=== PATIENT | female | born 1995 | race Caucasian/White ===

== ENCOUNTER 2023-02-15 15:38 | Outpatient (CLI) | payer OTHER, SELFPAY ==
--- NOTE | ~2023-02-15 | US_ITS ---
EXAMINATION: US OB follow up DATE: 02/15/2023 16:20 INDICATION: Amenorrhea TECHNIQUE: Real-time ultrasound of the pelvis was performed. The interpreting radiologist was not pre sent for the study. COMPARISON: None. FINDINGS: There is a single living fetus in vertex presentation. The crown rump length measures 10.0 cm which c orrelates with an estimated gestational age of 15 weeks and 6 days. The placenta is anterior and not low-lying with caudal margin >5 cm from the internal cervical os. heart rate is 137 beats per m inute (bpm). The amniotic fluid volume is subjectively normal. IMPRESSION: 1. Single living fetus in vertex presentation with heart rate of 137 bpm. 2. Gestational age by ultrasound of 15 weeks 6 day(s) +/- 1 week(s) 3 day(s) with ultrasound estimate d date of delivery (JEREMY) of 08/03/2023. Reviewed, dictated and finalized at location A. IMPRESSION: 1. Single living fetus in vertex presentation with heart rate of 137 bpm. 2. Gestational age by ultrasound of 15 weeks 6 day(s) +/- 1 week(s) 3 day(s) wi th ultrasound estimated date of delivery (JEREMY) of 08/03/2023.
== END 2023-02-15 15:39 | disposition home or self-care (01) ==
LOC: ANHIMG 15:44
PROVIDERS: Visit Provider Registered Nurse
DX: Z34.92 Encounter for supervision of normal pregnancy, unspecified, second trimester (principal); Z3A.15 15 weeks gestation of pregnancy
CPT/HCPCS: 76816

== ENCOUNTER 2023-06-30 15:42 | Outpatient (RCR) | payer OTHER, SELFPAY ==
[2023-06-30 16:23] VITALS: BP 129/87
== END 2023-09-28 23:59 | disposition home or self-care (01) ==
LOC: ANHOBOP 15:42
PROVIDERS: Visit Provider Obstetrics & Gynecology
DX: O36.8130 Decreased fetal movements, third trimester, not applicable or unspecified (principal); Z3A.35 35 weeks gestation of pregnancy
CPT/HCPCS: 59025

== ENCOUNTER 2023-07-27 11:33 | Outpatient (CLI) | payer OTHER, SELFPAY ==
[2023-07-27 12:11] LABS: Hematocrit 36.4 % (37.0-47.0); Hemoglobin 10.9 g/dL (12.0-15.0); Mean Corpuscular HGB Conc 29.9 g/dl (32-36); Mean Corpuscular Hemoglobin 23.4 pg (26-34); Mean Corpuscular Volume 78.1 fl (80-100); Mean Platelet Volume 9.8 fl (7.4-10.4); Platelet Count Result 262 k/mm3 (150-375); Red Blood Count 4.66 M/mm3 (4.2-5.4); Red Cell Distribution Width 18.5 % (11.5-14.5); White Blood Count 9.2 K/mm3 (4.5-10.0)
[2023-07-27 13:01] LABS: Rapid Plasma Reagin Non-Reactive (NonReactive)
[2023-07-27 13:02] LABS: HIV 1/2 Ab P24 Ag Result Negative (Negative)
== END 2023-07-27 11:34 | disposition home or self-care (01) ==
PROVIDERS: Visit Provider Obstetrics & Gynecology
DX: O26.93 Pregnancy related conditions, unspecified, third trimester (principal); O99.019 Anemia complicating pregnancy, unspecified trimester; Z3A.00 Weeks of gestation of pregnancy not specified
CPT/HCPCS: 36415; 85027; 86592; 86703; 86850; 86900; 86901; G0432

== ENCOUNTER 2023-07-29 05:14 | Inpatient (IN) | payer OTHER, SELFPAY ==
--- NOTE | 2023-07-28 13:56 | PM.IMHP ---
H&P: HPI History of Present Illness Date/Time: 07/28/23 13:56 Chief Complaint: Elective repeat section Narrative: She is a 27 y/0 at 39 weeks by LMP consistent with second trimester ultrasound presents for elective repeat section. She has opted for repeat . PNC significant for h/o anxiety/depression which has been stable off medications. H/o HSV, valtrex for suppression. Review of Systems Review of Systems: All systems reviewed & are unremarkable except as noted in HPI and below Constitutional: Constitutional: Reports no additional constitutional complaints and Denies headache(s) Eyes: Eyes: Denies spots in vision ENT: Reports system reviewed and no additional complaints, except as documented and Denies headache(s) Cardiovascular: Cardiovascular: Denies chest pain and Denies dyspnea Respiratory: Respiratory: Denies dyspnea Gastrointestinal: Gastrointestinal: Reports no additional gastrointestinal complaints Genitourinary: Genitourinary: Reports amenorrhea Musculoskeletal: Musculoskeletal: Reports no additional musculoskeletal complaints Integumentary/Breasts: Skin/Breast: Denies breast mass and Denies rash Neurologic: Denies headache(s) Psychiatric: Psychiatric: Reports no additional psychiatric complaints FORMERLY [facility] Past Medical History Medical History Anxiety Cholecystectomy planned Headache HSV-1 (herpes simplex virus 1) infection Surgical History Surgical History (Updated 07/28/23 @ 15:40 by Castro Sotelo MD) Delivery by section H/O dilation and curettage Family History Family History Sibling History of blood clots Social History Social History Smoking status: Never smoker Alcohol intake: never Substance use: never Substance use type: marijuana Lack of Transportation: No Lack of Food: Never True Current Housing: I Have Housing Concerned About Future Housing: No Difficulty Paying Gas/Electric Bills: No Difficulty Paying for Meds: No Currently Unemployed: YES Difficulty w/ Childcare or Family Care: No Living arrangements: with family Gender identity (if verbalized by the patient): Female Spiritual care concerns: No Meds Home Medications and Allergies Home Medications Medication Instructions Recorded Confirmed Type valacyclovir 500 mg tablet 500 mg PO DAILY #90 tabs 01/10/23 07/27/23 Rx metoclopramide HCl 5 mg tablet 5 mg PO .COMPLEX #90 tabs 03/15/23 07/27/23 Rx vits 75-iron 28 mg-folic pkg PO 03/15/23 07/27/23 History acid 800 mcg-omega3 440 mg oral pack (One Daily ) famotidine 20 mg tablet See Rx Instructions .Route 03/16/23 07/27/23 Rx .COMPLEX #180 tabs ferrous sulfate 325 mg (65 mg 325 mg PO BID #60 tabs 07/04/23 07/27/23 Rx iron) tablet Allergies Allergy/AdvReac Type Severity Reaction Status Date / Time adhesive tape Allergy Rash Verified 07/27/23 10:04 grape flavor Allergy Vomiting Verified 07/27/23 10:04 cigarette smoke AdvReac Nausea Verified 07/27/23 10:04 Exam Const: General: no acute distress Eyes: General: appearance normal, both eyes and all related structures Resp: Effort & Inspection: normal respiratory effort Cardio: Rate: regular rate GI: Other: Gravid no fundal tenderness no right upper quadrant pain Skin: General skin exam: no rashes or lesions noted Neuro: Cognition (Neuro): normal cognition Extrem: General: normal to inspection Psych: Mental Status: mental status grossly normal Assessment and Plan Assessment and plan (1) Delivery by section: Status: Acute Assessment and Plan: Admit. Will perform repeat section. She has been counseled regarding risk benefits and will proceed with repeat section. Ester
[2023-07-29] VITALS (49 sets, daily range): BP systolic 106–151; BP diastolic 55–102; PULSE 46–122; RESP 14–20; TEMP 36.1–36.7; O2SAT 95–100; BMI 35.2
--- NOTE | 2023-07-29 05:35 | LDADM ---
This patient, Mal Gilliam, was admitted to Labor/Delivery/Recovery 120 on 07/29/23 at 05:14. Plans for labor, pain management and were discussed with patient. Patient/family oriented to hospital policies and general routines including ID bracelet, bed and alarms, visiting hours, pain management, procedures, bathroom and other care routines, personal items, smoking policy, room service/diet and guest tray routines, infant security routines, and visiting hours. Patient/Family are encouraged to report perceived risks to care and to ask questions if they do not understand what they are told or what they should do. See OBIX for further documentation.
[2023-07-29] MEDS: ACETAMINOPHEN 500 MG TABLET 1000 MG PO (06:27)
[2023-07-29] MEDS: LACTATED RINGERS 1,000 ML 125 ML IV CONT (06:28)
[2023-07-29] MEDS: FAMOTIDINE 20 MG/2 ML VIAL IV PUSH (07:08)
--- NOTE | 2023-07-29 07:08 | WPDANESEPPF ---
Anes - Initial Pre Proc Eval Procedure: Operation Date: 07/29/23 07:30 Proposed Procedures p Repeat Section - Castro Sotelo MD Date/Time: 07/29/23 07:08 Surgeon: Castro Sotelo MD Pre Op Diagnosis: Repeat C/Section Patient Data Age: 27 Gender: F Height: 1.73 m Weight: 105 kg Last Vital Signs Pulse 81 07/29/23 07:00 BP 135/101 H 07/29/23 07:00 Allergies Allergy/AdvReac Type Severity Reaction Status Date / Time adhesive tape Allergy Rash Verified 07/27/23 10:04 grape flavor Allergy Vomiting Verified 07/27/23 10:04 cigarette smoke AdvReac Nausea Verified 07/27/23 10:04 Home Medications Medication Instructions Recorded Confirmed Type metoclopramide HCl 5 mg tablet 5 mg PO .COMPLEX #90 tabs 03/15/23 07/29/23 Rx vits 75-iron 28 mg-folic pkg PO 03/15/23 07/27/23 History acid 800 mcg-omega3 440 mg oral pack (One Daily ) famotidine 20 mg tablet See Rx Instructions .Route 03/16/23 07/29/23 Rx .COMPLEX #180 tabs ferrous sulfate 325 mg (65 mg 325 mg PO BID #60 tabs 07/04/23 07/29/23 Rx iron) tablet Patient hx anesthesia problems: none Family hx anesthesia problems: none Results Review: All pre-operative results and documents have been reviewed as part of the pre-operative evaluation. FORMERLY [facility], [facility] Past Medical History Medical History Anxiety Cholecystectomy planned Headache HSV-1 (herpes simplex virus 1) infection Surgical History Surgical History Delivery by section H/O dilation and curettage Family History Family History Sibling History of blood clots Social History Social History Smoking status: Never smoker Alcohol intake: never Substance use: never Substance use type: marijuana Do You Feel Safe in your Home?: Yes Lack of Transportation: No Lack of Food: Sometimes True Current Housing: I Have Housing Concerned About Future Housing: No Difficulty Paying Gas/Electric Bills: No Difficulty Paying for Meds: No Currently Unemployed: No Education: High School Diploma/GED Difficulty w/ Childcare or Family Care: No Living arrangements: with family Gender identity (if verbalized by the patient): Female Spiritual care concerns: No Anes - Eval Final PreProcedure Day of Procedure 07/29/23 07:09 Patient weight: obese Heart: regular rate and rhythm Lungs: clear to auscultation Airway: Mallampati scale class II Neurological: alert and oriented Last oral intake: >/= 8 hours ASA classification: III Emergent: no Anesthetic plan: proceed Anesthesia type and monitoring: regional spinal and standard monitoring Results Review: All pre-operative results and documents have been reviewed as part of the pre-operative evaluation. Informed Consent: The patient's anesthetic plan and its attendant risks and benefits were discussed with the patient/family/POA. Questions were solicited and answers provided to the satisfaction of the patient/family/POA.
[2023-07-29] MEDS: ONDANSETRON INJ 4 MG/2 ML VIAL IV PUSH (07:09)
--- NOTE | 2023-07-29 07:29 | WPDHPUPDATE1 ---
History and Physical Update Update Date/Time: 07/29/23 07:29 History and Physical has been reviewed, including an updated exam of the patient. There are NO changes in the patient's condition. Risks, benefits, and alternatives have been discussed and questions answered. Patient agrees to proceed with procedure.
[2023-07-29] MEDS: ceFAZolin 2 GM/D5W 50 ML 2 GM/50 ML BAG IVPB (07:30)
--- NOTE | 2023-07-29 08:44 | W.PM.PROC2 ---
Procedure Note - Detailed Date of Procedure 07/29/23 Pre-op Diagnosis Repeat C/Section Post-op Diagnosis Same Procedure Performed Repeat low transverse section Surgeon Castro Sotelo MD Anesthesia Spinal Indications Patient with prior section and request repeat section. Findings female infant, OT, normal uterus fallopian tubes and ovaries Description of Procedure After informed consent, risks and benefits of the procedure was discussed with the patient. The patient was taken to the operating room where she was placed in the dorsal lithotomy position with leftward tilt. After the spinal analgesia was found to be adequate, she was then prepped and draped in the usual sterile fashion. A Pfannenstiel skin incision was made along prior scar with a scalpel and carried through to the underlying layer of fascia. The fascia was then nicked in the midline, extending bilaterally. The fascia was dissected off the rectus muscles bluntly and sharply, superiorly and inferiorly. The rectus muscles were in the midline, and peritoneum was identified and entered bluntly. The pelvic organs were visualized. The bladder blade was then inserted. The vesicouterine peritoneum was identified and entered sharply with Metzenbaum scissors and extended bilaterally and then the bladder flap was created digitally. The low transverse uterine incision was then made with the scalpel and extended with bilateral index fingers in a crescent-shaped fashion. The head was in the OT position and the head was delivered and the rest of the infant was delivered. The nose and mouth suctioned. The cord was clamped twice and cut. The infant was then handed off to the awaiting pediatric staff. The placenta was then delivered manually. The uterine cavity was sponge curretted. The uterus was then exteriorized. The uterine incision was then closed with 0 vicryl in a running locked fashion. A second layer of closure with umbricating stitich using 3.0 vicryl. Hemostasis noted. Posterior cul de sac irrigated debris removed. The uterus was then returned to the abdomen. Bilateral gutters were cleared off all clots and debris. The uterine incision was noted to be hemostatic. Interceed placed on uterine incision. The muscle bellies were inspected and noted to be hemostatic. The subfascial layer was noted to be hemostatic, and the fascia was closed with 0 Vicryl in a running fashion. The subcutaneous layer was irrigated and was then approximated with 3-0 Vicryl. The skin was closed with Ensorb wilfredo. Skin dermabond applied at incision. All instruments, needle, and lap counts were correct x3. The patient was taken to the recovery room in stable condition. Estimated Blood Loss 475 Packing No Pathology None sent Complications No immediate complications Condition Stable Disposition Floor [facility] Billing Surgery - Charge Forward: Surgery Billing
--- NOTE | 2023-07-29 10:58 | OBPPTRN ---
Patient transferred to post room #282 via bed. Support person present. Oriented to unit, room, information board, rooming in, admission packet and security measures. Patient verbalizes understanding.
[2023-07-29] MEDS: OXYTOCIN 30 UNITS/NS 500 ML 30 UNITS/500 ML BAG 125 UNITS IV CONT (11:09)
[2023-07-29] MEDS: ACETAMINOPHEN 325 MG TABLET 650 MG PO ×2 (12:24→18:45)
[2023-07-29] MEDS: KETOROLAC 15 MG/ML VIAL (*BKC) IV PUSH (12:24)
[2023-07-29] MEDS: SIMETHICONE 80 MG TAB.CHEW PO ×2 (12:25→16:50)
[2023-07-29] MEDS: DEXTROSE 5%/0.45% SOD CHL 1,000 ML 125 ML IV CONT (15:24)
[2023-07-29] MEDS: DOCUSATE SODIUM 100 MG CAPSULE PO (16:50)
[2023-07-29] MEDS: KETOROLAC 15 MG/ML VIAL (*BKC) 30 MG IV PUSH (18:44)
[2023-07-29] MEDS: HYDROcodone/acetaminophen (*CRX) 5-325 MG TABLET 1 TAB PO (19:12)
[2023-07-30] VITALS: BP 127/88; PULSE 50; RESP 18; TEMP 36.4; O2SAT 100
[2023-07-30] MEDS: IBUPROFEN 600 MG TABLET PO ×2 (01:20→19:10)
[2023-07-30] MEDS: HYDROcodone/acetaminophen (*CRX) 5-325 MG TABLET 1 TAB PO (01:20)
[2023-07-30] MEDS: HYDROcodone/acetaminophen (*CRX) 10-325 MG TABLET 1 TAB PO ×6 (04:17→22:30)
[2023-07-30 04:36] LABS: Basophils Percent Auto 0.2 % (0.2-1.2); Eosinophils Percent Auto 0.3 % (0-4.4); Hematocrit 31.3 % (37.0-47.0); Hemoglobin 9.4 g/dL (12.0-15.0); Immature Granulocyte Absolute 0.06 K/mm3 (0.00-0.031); Immature Granulocyte Percent A 0.6 % (0-0.5); Lymphocytes Absolute Auto 1.05 K/mm3 (0.9-3.2); Lymphocytes Percent Auto 10.5 % (18.3-44.2); Mean Corpuscular Hemoglobin 23.9 pg (26-34); Mean Corpuscular Volume 79.4 fl (80-100); Mean Platelet Volume 9.7 fl (7.4-10.4); Monocytes Absolute Auto 0.7 K/mm3 (0.1-0.6); Monocytes Percent Auto 6.5 % (2.6-8.5); Neutrophils Absolute Auto 8.2 K/mm3 (1.3-6.7); Neutrophils Percent Auto 81.9 % (45.5-73.1); Platelet Count Result 196 k/mm3 (150-375); Red Blood Count 3.94 M/mm3 (4.2-5.4); Red Cell Distribution Width 18.7 % (11.5-14.5)
[2023-07-30 07:30] VITALS: BP 118/87; PULSE 91; RESP 18; TEMP 36.7; O2SAT 100
[2023-07-30] MEDS: SIMETHICONE 80 MG TAB.CHEW PO ×2 (07:31→13:07)
[2023-07-30] MEDS: DOCUSATE SODIUM 100 MG CAPSULE PO ×2 (07:31→16:25)
[2023-07-30] MEDS: MULTIVIT/MIN/PREN/FOL AC/IRON TABLET 1 TAB PO (07:31)
[2023-07-30] MEDS: POLYSACCHARIDE IRON COMPLEX 150 MG CAPSULE PO ×2 (07:36→16:25)
[2023-07-30] MEDS: LANOLIN (LANSINOH) 7.5 GM CREAM 1 APPLIC TOPICAL (07:40)
--- NOTE | 2023-07-30 09:59 | P.PNOB_ITS ---
OB - PN: Subj Subjective Date/time seen: 07/30/23 09:59 Interval history: She has adequate pain control. She has had flatus. No lightheadedness or dizziness. Patient comments: pain well controlled and tolerating diet [place] baby status: doing well OB - PN: Obj Data Labs 07/30/23 04:22 Labs: Laboratory Results - last 24 hr 07/30/23 04:22 WBC 10.0 RBC 3.94 L Hgb 9.4 L Hct 31.3 L MCV 79.4 L MCH 23.9 L MCHC 30.0 L RDW 18.7 H Plt Count 196 MPV 9.7 Immature Gran % (Auto) 0.6 H Neut % (Auto) 81.9 H Lymph % (Auto) 10.5 L [place] % (Auto) 6.5 Eos % (Auto) 0.3 Baso % (Auto) 0.2 Lymph # (Auto) 1.05 [place] # (Auto) 0.7 H Eos # (Auto) 0.0 Baso # (Auto) 0.0 Abs Immat Gran (auto) 0.06 H Absolute Neuts (auto) 8.2 H Absolute Nucleated RBC 0.0 Nucleated RBC % 0.0 OB - PN A/P Assessment and Plan (1) Delivery by section: Status: Acute Assessment and Plan: POD1. Doing well. Routine post op care. Small area of a contact dermatitis on lower abdomen. Hydrocortisone ordered. Time Spent With Patient Time: Total time spent is greater than 50% in coordination of care (as documented) at patient's floor/unit and/or counseling patient: Exam Const: General: comfortable and no acute distress Resp: Effort & Inspection: normal respiratory effort Cardio: Rate: regular rate GI: Other: incision intact, small area of raised red papules near hips bilat, incision intact Psych: Mental Status: mental status grossly normal Affect: normal affect
--- NOTE | 2023-07-30 10:17 | WPDANLDPN2 ---
Anes-Prog Note L&D Date/Time: 07/30/23 10:17 Comfortable throughout: section Neuraxial method: spinal Epidural/Spinal procedure site: clean & non-tender Neuro status: Neuro function grossly intact. Cardiovascular status: normal Respiratory status: normal Airway patency: baseline Mental status: baseline Post-Op hydration status: normal Vital Signs: Last Vital Signs Temp 97.5 F L 07/30/23 00:00 Pulse 50 L 07/30/23 00:00 Resp 18 07/30/23 00:00 BP 127/88 07/30/23 00:00 Pulse Ox 100 07/30/23 00:00 O2 Del Method Room Air 07/29/23 10:40 Pain score (VAS): 4 I/O: Intake & Output 07/29/23 07/30/23 07/30/23 23:59 07:59 15:59 Intake Total 1350 Output Total 800 1000 Balance 550 -1000 Post-procedural complaints: pruritis mild, no treatment Patient feedback: Patient satisfied with anesthetic care.
--- NOTE | 2023-07-30 10:18 | WPDANLDNPN2 ---
Anes-Prog Note L&D-Neuraxial Date/Time: 07/30/23 10:18 Neuraxial medications: intrathecal PF morphine Opiod-related complaints: pruritis Patient feedback: Patient satisfied with post-operative pain management.
[2023-07-30] MEDS: IBUPROFEN 600 MG TABLET (13:04)
[2023-07-30 19:10] VITALS: BP 143/85; PULSE 99; RESP 18; TEMP 37; O2SAT 100
--- NOTE | 2023-07-30 22:30 | PC.NURSE ---
Patient sent baby out for the night and requested not to be woken up for scheduled tylenol and motrin at 0110. Patient stated she would call out when she wakes up for them.
[2023-07-31] MEDS: ACETAMINOPHEN 325 MG TABLET 650 MG PO
[2023-07-31] MEDS: HYDROcodone/acetaminophen (*CRX) 10-325 MG TABLET 1 TAB PO ×4 (02:40→13:40)
[2023-07-31] MEDS: IBUPROFEN 600 MG TABLET PO ×3 (02:40→16:47)
[2023-07-31 08:06] VITALS: BP 131/84; PULSE 81; RESP 18; TEMP 36.2; O2SAT 100
--- NOTE | 2023-07-31 09:25 | PM.OBPNVD ---
OB - PN: Subj Subjective Date/time seen: 07/31/23 09:25 Interval history: She states pain is better today with increase pain meds, she is ambulating, decrease lochia, tolerating regular food, positive flatus. OB - PN: Obj Data Labs 07/30/23 04:22 OB - PN A/P Assessment and Plan (1) Delivery by section: Status: Acute Assessment and Plan: POD2. Doing well. Routine post op care. Contact dermatitis rash, hydrocortisone has been ordered. Time Spent With Patient Time: Total time spent is greater than 50% in coordination of care (as documented) at patient's floor/unit and/or counseling patient: Exam Const: General: comfortable and no acute distress Resp: Effort & Inspection: normal respiratory effort Auscultation: clear to auscultation bilaterally GI: Other: exam- incision intact, rash still present. Psych: Mental Status: mental status grossly normal Affect: normal affect
--- NOTE | 2023-07-31 09:29 | PM.OBDSVD ---
DS: Admitting Diagnosis Discharge Date Admitting Diagnosis Elective repeat section DS: Discharge Diagnosis Discharge Diagnosis (1) Delivery by section: Status: Acute OB - DS: Summary Hospital Course Hospital Course: She was admitted for elective repeat section. She had an uncomplicated section. She did well . She had a mild contact dermatitis rash on abdomen. Hydrocortisone ordered. OB Procedures : Ultrasound OB Procedures Intrapartum: OB Procedures: : None Peripartum Data Delivery Method: Section Procedures: Procedures Operation Date: 07/29/23 07:30 Actual Procedure Side Surgeon p Section Castro Sotelo MD complications: none Status at Discharge Functional status at discharge: independent ambulation Time Spent with Patient Time attestation: Total time spent providing and/or coordinating discharge services: Exam Const: General: cooperative Orientation/consciousness: oriented to person, oriented to place and oriented to time HENMT: Face/Nose/Sinus: Normal external nose present Eyes: General: appearance normal, both eyes and all related structures Resp: Effort & Inspection: normal respiratory effort GI: Inspection: normal to inspection Other: incision intact Skin: General skin exam: normal color Neuro: General: oriented to person, oriented to place and oriented to time Extrem: General: normal to inspection and no calf tenderness Psych: Appearance: grossly normal Mental Status: mental status grossly normal Discharge Plan Discharge Attending physician on discharge: Castro Sotelo Consulting providers: Martir Desai; Lucie Peterson Discharging Clinician: Castro Sotelo Patient Disposition: Home, Self-Care Activity: may shower, no straining, no driving and pelvic rest Diet: regular Discharge Instructions: Education: Mom and Baby Guide Given to: Mother Follow-Up: Call your delivering provider's office for an appointment to be seen in: 2 Weeks What to expect at your follow-up visit: Physical Assessment Call [phone] if you are unable to keep your appointment time. BREAST CARE: * Wear a snug supportive bra. * For engorgement discomfort: Breast Feeding: * Apply warm moist washcloths * Express milk as needed to relieve engorgement * Wear loose clothing * For sore nipples: * Identify correct latch-on * Apply warm moist washcloths before and after nursing * Air dry nipples after nursing * May apply Lansinoh cream to nipples ABDOMINAL INCISION: * Allow incision to air dry * Do NOT use lotions for powders on your incision * When showering, allow soap and water to run over the incision, but do not wash incision PERINEAL CARE: * Until bleeding stops, use your andres bottle after urinating * Change your pad frequently throughout the day * No tub baths until seen by your physician - You may shower ACTIVITY: * Rest as much as possible. * Do not exercise or lift anything heavier than your baby (such as laundry or other children.) * Avoid stairs or driving as much as possible. * Do not put anything into the vagina. No douching, tampons, or sexual activity until seen by physician. NOTIFY PHYSICIAN IF YOU HAVE ANY QUESTIONS OR IF ANY OF THE FOLLOWING SYMPTOMS OCCUR: * If your incision becomes red, swollen, or more painful than what you have experienced in the hospital. * If your vaginal bleeding becomes foul smelling. * If your vaginal bleeding becomes more heavy than a period or if your bleeding changes from pink to bright red. However, you may pass an occasional walnut-sized clot once or twice for the first week . * If you experience a sharp, shooting pain in you calves. * If you discover a hard, reddened area on your breast or if you experience flu-like symptoms. D
[2023-07-31] MEDS: POLYSACCHARIDE IRON COMPLEX 150 MG CAPSULE PO ×2 (09:47→16:47)
[2023-07-31] MEDS: SIMETHICONE 80 MG TAB.CHEW PO ×2 (09:48→13:40)
[2023-07-31] MEDS: DOCUSATE SODIUM 100 MG CAPSULE PO ×2 (09:48→16:47)
[2023-07-31] MEDS: MULTIVIT/MIN/PREN/FOL AC/IRON TABLET 1 TAB PO (09:48)
[2023-07-31] MEDS: HYDROCORTISONE 2.5% CREAM 30 GM TUBE 1 APPLIC TOPICAL (09:49)
[2023-07-31] MEDS: HYDROcodone/acetaminophen (*CRX) 5-325 MG TABLET 1 TAB PO ×2 (16:54→22:05)
[2023-07-31 20:10] VITALS: BP 141/90; PULSE 97; RESP 18; TEMP 36.6; O2SAT 100
[2023-08-01] MEDS: IBUPROFEN 600 MG TABLET PO ×4 (00:25→21:24)
[2023-08-01] MEDS: HYDROcodone/acetaminophen (*CRX) 5-325 MG TABLET 1 TAB PO ×4 (03:54→21:24)
[2023-08-01] MEDS: MULTIVIT/MIN/PREN/FOL AC/IRON TABLET 1 TAB PO (08:39)
[2023-08-01] MEDS: SIMETHICONE 80 MG TAB.CHEW PO ×3 (08:39→18:24)
[2023-08-01] MEDS: HYDROcodone/acetaminophen (*CRX) 10-325 MG TABLET 1 TAB PO ×3 (08:39→15:14)
[2023-08-01] MEDS: DOCUSATE SODIUM 100 MG CAPSULE PO ×2 (08:39→18:23)
[2023-08-01] MEDS: POLYSACCHARIDE IRON COMPLEX 150 MG CAPSULE PO ×2 (08:40→18:23)
--- NOTE | 2023-08-01 08:48 | P.PNOB_ITS ---
OB - PN: Subj Subjective Date/time seen: 08/01/23 08:48 Interval history: Pt doing well. States pain is 4-5 at rest but increases with movement to 8-9 Ambulating well. Decreased lochia. Patient comments: tolerating diet and flatus present baby status: doing well OB - PN: Obj Data Labs 07/30/23 04:22 OB - PN A/P Assessment and Plan (1) Delivery by section: Status: Acute Plan POD 3 Doing well. States pain is not well controlled with movement. Discussed pain management te chniques in detail with patient. Discussed discharge vs staying. Pt to stay tonight. Recommend regular ambulation. Plan day: 3 Plan: routine care Time Spent With Patient Time: Total time spent is greater than 50% in coordination of care (as documented) at patient's floor/unit and/or counseling patient: Exam Const: General: cooperative, comfortable, no acute distress, alert and awake Resp: Effort & Inspection: normal respiratory effort and able to speak in complete sentences GI: Inspection: incision (CDI) GI Palp: Yes Soft to palpation Other: Fundus palpated below U. Non tender Dermatitis noted to abdomen, no streaking, warmth or drainage : External Female Exam: normal external appearance Skin: Rashes: rashes noted (to abdomen) Extrem: General: normal to inspection, full ROM and no calf tenderness
[2023-08-01 08:50] VITALS: BP 122/80; PULSE 78; RESP 14; TEMP 36.7; O2SAT 100
[2023-08-01] MEDS: HYDROCORTISONE 2.5% CREAM 30 GM TUBE 1 APPLIC TOPICAL ×2 (09:00→15:00)
--- NOTE | 2023-08-01 15:38 | PC.NURSE ---
Addendum entered by Vicki Rico RN 08/01/23 15:48: 1145 Introductions were made, then consulted with patient to assess needs related to . Mother led the conversation with her?plans to feed?her and the?experience so far. Encouraged understanding of the benefits of skin to skin (demonstrating unwrapping and placing upright on her chest), stimulating with massage touch, changing positions to encourage wakefulness, how to watch for early feeding cues, responsive feeding, feeding on demand (aiming for 8-12 times in 24 hours, about every 2-3 hours), milk production, building/maintaining a milk supply, duration of feeding, signs of adequate intake/output and how to record on the feeding sheet. Mother works well with her with encouragement and education. Reviewed positioning and ear, shoulder, hip alignment, supporting the breast to facilitate a deep latch, asymmetrical latch (off-center), leading with the chin with a big, open, wide gape and body close to mother. latched optimally to the both breasts in cross cradle position. Education given to the mother of how to visualize the suckling (with good rocking jaw motion), swallows (dropping of the lower jaw) and how to listen for drinking at the breast (the ka sound). Infant was able to maintain latch without pain to mother protecting the nipple with optimal positioning and latching. Reviewed comfort measures of healing with a warm, wet washcloth to rinse breast, then leave open to air-dry, good handwashing when or touching the breast/nipples to prevent infection. Mother voiced understanding of skin to skin, stimulating with massage touch, responsive feedings, hand expressed colostrum, talking to infant to encourage if it has been 2 -2.5 hours since the start of the last , to call if does not latch, or if there is discomfort with . Resources used for education were facilitated with the visual educational handouts/ tool/mom and baby guide, Inpatient resources provided with business card, feeding sheet, name written on the communication board, and the mom/baby guide. Parents voiced understanding of information, demonstrated learning and will call if there is a request for assistance. Reported to the Primary RN. Original Note: [id number] Introductions were made, then consulted with patient to assess needs related to . Mother led the conversation with her?plans to feed?her and the?experience so far. Encouraged understanding of the benefits of skin to skin (demonstrating unwrapping infant and placing upright on her chest), stimulating with massage touch, changing positions to encourage wakefulness, how to watch for early feeding cues, responsive feeding, feeding on demand (aiming for 8-12 times in 24 hours, about every 2-3 hours), milk production, building/maintaining a milk supply, duration of feeding, signs of adequate intake/output and how to record on the feeding sheet. Mother works well with her with encouragement and education. Reviewed positioning and ear, shoulder, hip alignment, supporting the breast to facilitate a deep latch, asymmetrical latch (off-center), leading with the chin with a big, open, wide gape and body close to mother. Infant latched optimally to the both breasts in cross cradle position. Education given to the mother of how to visualize the suckling (with good rocking jaw motion), swallows (dropping of the lower jaw) and how to listen for drinking at the breast (the ka sound). Infant was able to maintain latch without pain to mother protecting the nipple with optimal positioning and latching. Reviewed comfort measures of healing with a warm, wet washcloth to rinse breast, then leave open to air-dry, good handwashing when or touching the breast/nipples to prevent infection. Mother voiced understanding of skin to skin, stimulating with massage touch,
[2023-08-01 20:00] VITALS: BP 138/95; PULSE 79; RESP 18; TEMP 36.9; O2SAT 99
[2023-08-02] MEDS: HYDROcodone/acetaminophen (*CRX) 10-325 MG TABLET 1 TAB PO ×3 (01:08→17:39)
[2023-08-02] MEDS: HYDROcodone/acetaminophen (*CRX) 5-325 MG TABLET 1 TAB PO (07:15)
[2023-08-02] MEDS: SIMETHICONE 80 MG TAB.CHEW PO ×3 (07:15→17:38)
[2023-08-02] MEDS: HYDROCORTISONE 2.5% CREAM 30 GM TUBE 1 APPLIC TOPICAL (07:16)
[2023-08-02] MEDS: IBUPROFEN 600 MG TABLET PO ×2 (07:16→13:20)
[2023-08-02 07:30] VITALS: BP 116/77; PULSE 80; RESP 16; TEMP 36.6; O2SAT 100
[2023-08-02] MEDS: MULTIVIT/MIN/PREN/FOL AC/IRON TABLET 1 TAB PO (09:31)
[2023-08-02] MEDS: POLYSACCHARIDE IRON COMPLEX 150 MG CAPSULE PO ×2 (09:31→17:38)
[2023-08-02] MEDS: DOCUSATE SODIUM 100 MG CAPSULE PO ×2 (09:31→17:38)
--- NOTE | 2023-08-02 14:17 | PC.NURSE ---
1115 Mother verbalizes she is able to independently latch infant with appropriate positioning and alignment. She denies any nipple discomfort and is responsively . is currently meeting outcomes for weight, output, jaundice, blood sugar and feeding frequencies of 8-12 times in 24 hours. Mother declines any additional assistance or education at this time. Mother is encouraged to call for assistance if her doesn?t latch, pain with latching, questions or concerns. Mother voiced understanding of information shared along with the mom/baby guide for an additional resource. Reported to the Primary RN.
== END 2023-08-02 17:50 | disposition home or self-care (01) | DRG 540 ==
LOC: ANHLDR 05:20 → ANHOB2 11:06
PROVIDERS: Admitting Provider Obstetrics & Gynecology; Visit Provider Obstetrics & Gynecology
PROC: 10D00Z1 Extraction of Products of Conception, Low, Open Approach (ICD-10-PCS; CPT 59514; principal; 2023-07-29 07:30)
DX: O34.211 Maternal care for low transverse scar from previous cesarean delivery (principal); Z37.0 Single live birth; Z3A.39 39 weeks gestation of pregnancy; O99.824 Streptococcus B carrier state complicating childbirth; O69.81X0 Labor and delivery complicated by cord around neck, without compression, not applicable or unspecified; O98.32 Other infections with a predominantly sexual mode of transmission complicating childbirth; A60.09 Herpesviral infection of other urogenital tract
CPT/HCPCS: 36415; 85025; 85027; 86592; 86703; 86850; 86900; 86901; A9270; G0432; J0690; J1885; J2274; J2405; J2590; J7120

== ENCOUNTER 2024-04-15 06:42 | Emergency (ER) | payer OTHER, SELFPAY ==
--- NOTE | ~2024-04-15 | US_ITS ---
EXAMINATION: US OB <=14 wk fetus w TV DATE: 04/15/2024 08:26 INDICATION: Vaginal bleeding in . TECHNIQUE: Real-time transabdominal and transvaginal pelvic ultrasound was performed. COMPARISON: None. FINDINGS: TRANSABDOMINAL ULTRASOUND: The uterus measures 10.1 x 3.6 x 6.2 cm. TRANSVAGINAL ULTRASOUND: The endometrial complex measures 18 mm in thickness. There is no visible int rauterine gestational sac. The right ovary measures 2.8 x 2.8 x 2.5 cm. The left ovary is not visuali zed. There is physiologic free fluid in the pelvis. IMPRESSION: 1. No visible intrauterine gestational sac, which may be normal in early . Spontaneous abor tion and ectopic are not excluded. Serial beta-hCGs are recommended. Reviewed, dictated and finalized at location A. IMPRESSION: 1. No visible intrauterine gestational sac, which may be normal in early pregn jonny. Spontaneous and ectopic are not excluded. Serial beta- hCGs are recommended.
[2024-04-15 06:47] VITALS: BP 136/90; PULSE 98; RESP 17; TEMP 36.7; O2SAT 100
--- NOTE | 2024-04-15 06:59 | PC.NURSE ---
Patient refused IV, but states you can draw blood but I don't want an IV.
[2024-04-15 07:06] LABS: Basophils Percent Auto 0.3 % (0.2-1.2); Eosinophils Absolute Auto 0.1 K/mm3 (0-0.3); Eosinophils Percent Auto 0.6 % (0-4.4); Hematocrit 37.6 % (37.0-47.0); Hemoglobin 11.9 g/dL (12.0-15.0); Immature Granulocyte Absolute 0.05 K/mm3 (0.00-0.031); Immature Granulocyte Percent A 0.5 % (0-0.5); Lymphocytes Absolute Auto 2.09 K/mm3 (0.9-3.2); Lymphocytes Percent Auto 21.5 % (18.3-44.2); Mean Corpuscular HGB Conc 31.6 g/dl (32-36); Mean Corpuscular Hemoglobin 24.2 pg (26-34); Mean Corpuscular Volume 76.4 fl (80-100); Mean Platelet Volume 9.2 fl (7.4-10.4); Monocytes Absolute Auto 0.5 K/mm3 (0.1-0.6); Monocytes Percent Auto 5.3 % (2.6-8.5); Neutrophils Percent Auto 71.8 % (45.5-73.1); Platelet Count Result 352 k/mm3 (150-375); Red Blood Count 4.92 M/mm3 (4.2-5.4); Red Cell Distribution Width 13.8 % (11.5-14.5); White Blood Count 9.7 K/mm3 (4.5-10.0)
[2024-04-15 07:12] LABS: Alanine Aminotransferase 22 U/L (6-35); Alkaline Phosphatase 89 U/L (38-126); Anion Gap 11 mmol/L (4-12); Aspartate Amino Transferase 26 U/L (14-36); Blood Urea Nitrogen 3 mg/dL (7-17); Calcium 8.4 mg/dL (8.4-10.2); Carbon Dioxide 26 mmol/L (22-30); Chloride 101 mmol/L (98-107); Estimated CRCL calculation 135 ml/min; Estimated Glomerular Filt Rate > 60; Glucose 111 mg/dL (65-110); Potassium 3.2 mmol/L (3.4-5.0); Sodium 138 mmol/L (137-145)
[2024-04-15 07:16] LABS: Partial Thromboplastin Time 27.5 Seconds (22.3-36.8); Prothrombin Time 13.8 Seconds (11.1-14.7)
--- NOTE | 2024-04-15 07:45 | PC.NURSE ---
Pelvic exam completed and swabs obtained. Large clot removed from vaginal vault
[2024-04-15 08:00] VITALS: BP 132/80; PULSE 78; RESP 16; TEMP 36.6; O2SAT 100
--- NOTE | 2024-04-15 08:12 | ED.GENADULT ---
HPI - General Adult General Chief complaint: Vaginal Bleeding Stated complaint: possible miscarriage, 6 weeks Time Seen by Provider: 04/15/24 07:00 History of Present Illness HPI narrative: Patient is a 28-year-old female who is a EAB2 SAB1 who presents the ER with vaginal bleeding. LMP March 03, 2024. Began bleeding earlier this morning. Large clots. Mild cramping in the pelvis. No vaginal discharge but concerned she could have been exposed to an STI. Her OB is Dr. Steel though she has not been seen for this . no syncope. Related Data Allergies Allergy/AdvReac Type Severity Reaction Status Date / Time adhesive tape Allergy Rash Verified 04/15/24 06:42 grape flavor Allergy Vomiting Verified 04/15/24 06:42 cigarette smoke AdvReac Nausea Verified 04/15/24 06:42 Review of Systems Review of Systems: All systems reviewed & are unremarkable except as noted in HPI and below Constitutional: Constitutional: Reports no additional constitutional complaints ENT: Reports system reviewed and no additional complaints, except as documented Cardiovascular: Cardiovascular: Reports no additional cardiovascular complaints Respiratory: Respiratory: Reports no additional respiratory complaints Gastrointestinal: Gastrointestinal: Reports no additional gastrointestinal complaints Genitourinary: Genitourinary: Reports abnormal vaginal bleeding, Denies nocturia, Denies dysuria, Denies pelvic pain, Denies flank pain and Denies vaginal discharge Musculoskeletal: Musculoskeletal: Reports no additional musculoskeletal complaints [facility] Past Medical History Medical History Anxiety Cholecystectomy planned Headache HSV-1 (herpes simplex virus 1) infection Surgical History Surgical History Delivery by section H/O dilation and curettage Family History Family History Sibling History of blood clots Social History Social History Smoking status: Never smoker Alcohol intake: never Substance use: never Substance use type: marijuana Do You Feel Safe in your Home?: Yes Lack of Transportation: No Lack of Food: Sometimes True Current Housing: I Have Housing Concerned About Future Housing: No Difficulty Paying Gas/Electric Bills: No Difficulty Paying for Meds: No Currently Unemployed: No Education: High School Diploma/GED Difficulty w/ Childcare or Family Care: No Living arrangements: with family Gender identity (if verbalized by the patient): Female Spiritual care concerns: No Exam Narrative: GENERAL: Well-appearing, well-nourished, and in no acute distress. HEAD: Normocephalic, atraumatic. ENT: Mucous membranes moist. CHEST: Clear to auscultation. No respiratory distress. HEART: Regular rate and rhythm. Normal peripheral pulses. ABDOMEN: Soft, nontender, nondistended. : Normal external genitalia. Moderate clotted blood within the vagina. Evacuated to show a nonfriable closed cervix without active hemorrhage. No vaginal discharge. EXTREMITIES: Normal range of motion. No edema. SKIN: Warm, dry, no rash. NEURO: Alert and oriented x3. PSYCH: Normal mood and affect. Course Course Emergency Course: Patient resting comfortably. Informed of imaging and lab results. Does not need RhoGAM. May be early or miscarriage. Needs follow-up beta in [address] Baez who is on-call for Dr. Sotelo. Vital Signs Vital signs: Vital Signs Temperature 98.0 F 04/15/24 06:47 Pulse Rate 98 04/15/24 06:47 Respiratory Rate 17 04/15/24 06:47 Blood Pressure 136/90 04/15/24 06:47 Pulse Oximetry 100 04/15/24 06:47 Oxygen Delivery Room Air 04/15/24 06:47 Temperature 98.0 F 04/15/24 06:47 Pulse Rate 98 04/15/24 06:47 Respiratory Rate 17 04/15/24 06:47 Blood Pressure 136/90 04/15/24 06:47 Pulse Oximetry 100 04/15/24 06:47 Oxygen Delivery Room Air 04/15/24 06:47 Medical Decision Making Vital Signs Vital Signs: Vital Signs Temperature 98.0 F 04/15/24 06:47 Pulse Rate 98 04/15/24 06:47 Respiratory Rate 17 04/15/24 06:47 Blood Pressure 136/90 04/15/24 06:47 Pulse Oximetry 100 04/15/24 06:47 Oxygen Delivery Room Air 04/15/24 06:47 Temperature 98.0 F 04/15/24 06:47 Pulse Rate 98 04/15/24 06:47 Respiratory Rate 17 04/15/24 06:47 Blood Pressure 136/90 04/15/24 06:47 Pulse Oximetry 100 04/15/24 06:47 Oxygen Delivery Room Air 04/15/24 06:47 Lab Data 04/15/24 06:57 04/15/24 06:57 Labs: Lab Results 04/15/24 Range/Units 06:57 WBC 9.7 (4.5-10.0) K/mm3 RBC 4.92 (4.2-5.4) M/mm3 Hgb 11.9 L (12.0-15.0) g/dL Hct 37.6 (37.0-47.0) % MCV 76.4 L (80-100) fl MCH 24.2 L (26-34) pg MCHC 31.6 L (32-36) g/dl RDW 13.8 (11.5-14.5) % Plt Count 352 D (150-375) k/mm3 MPV 9.2 (7.4-10.4) fl Immature Gran % (Auto) 0.5 (0-0.5) % Neut % (Auto) 71.8 (45.5-73.1) % Lymph % (Auto) 21.5 (18.3-44.2) % [place] % (Auto) 5.3 (2.6-8.5) % Eos % (Auto) 0.6 (0-4.4) % Baso % (Auto) 0.3 (0.2-1.2) % Lymph # (Auto) 2.09 (0.9-3.2) K/mm3 [place] # (Auto) 0.5 (0.1-0.6) K/mm3 Eos # (Auto) 0.1 (0-0.3) K/mm3 Baso # (Auto) 0.0 (0.0-0.1) K/mm3 Abs Immat Gran (auto) 0.05 H (0.00-0.031) K/mm3 Absolute Neuts (auto) 7.0 H (1.3-6.7) K/mm3 Absolute Nucleated RBC 0.000 (0.0-0.012) K/mm3 Nucleated RBC % 0.0 (0.0-0.2) % PT 13.8 (11.1-14.7) Seconds INR 1.0 APTT 27.5 (22.3-36.8) Seconds Sodium 138 (137-145) mmol/L Potassium 3.2 L (3.4-5.0) mmol/L Chloride 101 (98-107) mmol/L Carbon Dioxide 26 (22-30) mmol/L Anion Gap 11 (4-12) mmol/L BUN 3 L (7-17) mg/dL Creatinine 0.70 (0.7-1.0) mg/dL Estim Creat Clear Calc 135 ml/min Estimated GFR > 60 (59 - ) Glucose 111 H (65-110) mg/dL Calcium 8.4 (8.4-10.2) mg/dL Total Bilirubin 1.0 (0.2-1.3) mg/dL AST 26 (14-36) U/L ALT 22 (6-35) U/L Alkaline Phosphatase 89 (38-126) U/L Total Protein 8.0 (6.3-8.2) g/dL Albumin 4.0 (3.5-5.1) g/dL Beta HCG, Quant 1025.00 mIU/ML Blood Type A Positive Antibody Screen Pending Screen Pending Baby's Blood Type Pending Baby's YISEL Pending Doses of RhIg Required Pending Imaging Data Radiologist's impression: ITS Impressions Obstetrics Ultrasound 04/15/24 08:33 IMPRESSION: 1. No visible intrauterine gestational sac, which may be normal in early . Spontaneous and ectopic are not excluded. Serial beta-hCGs are recommended. Discharge Plan Discharge Clinical Impression: Vaginal bleeding in Patient Disposition: Home, Self-Care Condition: Stable Instructions: Threatened Miscarriage (ED) Additional Instructions: It is very possible that your miscarrying. A was not seen on your ultrasound but your blood level is still elevated. Will need a repeat test in 48 hours to see if your blood test is going up or down. Call Dr. Sotelo to arrange this. Return ER if you have severe lower abdominal pain, you lose consciousness, or have additional concerns. Follow-up/Referrals: PHYSICIAN,LITIGATION SERVICES MANAGER [Primary Care Provider] - Castro Sotelo MD [Physician] - 2 Days
[2024-04-15 08:57] VITALS: BP 136/76; PULSE 80; RESP 16; TEMP 36.6; O2SAT 100
== END 2024-04-15 09:00 | disposition home or self-care (01) ==
PROVIDERS: Student in an Organized Health Care Education/Training Program; Emergency Provider Emergency Medicine
DX: O46.91 Antepartum hemorrhage, unspecified, first trimester (principal); Z3A.01 Less than 8 weeks gestation of pregnancy
CPT/HCPCS: 36415; 76801; 76817; 80053; 84702; 85025; 85461; 85610; 85730; 86850; 86900; 86901; 99284